=== PATIENT | male | born 1955 | race Caucasian/White ===

== ENCOUNTER 2021-07-31 13:40 | Emergency (ER) | payer MEDICARE ==
[~2021-07-31] VITALS: Wt 99.8 kg
[2021-07-31 14:28] LABS: BASO # 0.03 K/mm3 (0.02-0.10); EOS # 0.34 K/mm3 (0.04-0.40); EOS % 4.3 % (0.0-4.0); HEMATOCRIT 40.4 % (42.0-52.0); HEMOGLOBIN 13.5 g/dL (13.5-18.0); LYMPH# 3.32 K/mm3 (1.50-4.00); MEAN CELL VOLUME 98 fl (78-100); MEAN CORPUSCULAR HEMOGLOBIN 33 pg (27-31); MEAN CORPUSCULAR HGB CONC 33 g/dL (33-37); MEAN PLATELET VOLUME 9.5 fl (7.4-10.4); MONO # 0.73 K/mm3 (0.20-0.80); NEU # 3.46 K/mm3 (1.40-6.50); PLATELET COUNT 180 K/mm3 (130-400); RED BLOOD COUNT 4.13 M/mm3 (4.20-5.60); RED CELL DISTRIBUTION WIDTH 12.1 % (11.5-14.5); WHITE BLOOD COUNT 7.9 K/mm3 (4.8-10.8)
[2021-07-31 14:39] LABS: ALBUMIN 3.4 g/dL (3.4-4.8); POTASSIUM 3.8 mmol/L (3.5-5.1); SODIUM 141 mmol/L (136-145)
[2021-07-31 14:42] LABS: GLUCOSE 120 mg/dL (75-110); TOTAL PROTEIN 6.7 g/dL (6.2-8.1)
[2021-07-31 14:43] LABS: CARBON DIOXIDE 21 mmol/L (23-31); TOTAL BILIRUBIN 0.5 mg/dL (0.2-1.2)
[2021-07-31 14:47] LABS: AST-SGOT 15 U/L (5-34)
[2021-07-31 14:48] LABS: ALT/SGPT 13 U/L (0-55)
[2021-07-31 14:56] LABS: TROPONIN-I < 0.03 ng/mL (<0.030)
[2021-07-31] MEDS ORDERED: METOPROLOL SUCC25 M1 PO (15:00)
[2021-07-31] MEDS ORDERED: LEVOTHYROXINE125 MCG PO (15:00)
[2021-07-31] MEDS ORDERED: LOSARTAN POTASS25 MG PO (15:00)
[2021-07-31 16:40] LABS: URINE APPEARANCE CLEAR; URINE BILIRUBIN 1+ (NEGATIVE); URINE BLOOD NEGATIVE (NEGATIVE); URINE COLOR YELLOW; URINE GLUCOSE NEGATIVE (NEGATIVE); URINE KETONE NEGATIVE (NEGATIVE); URINE LEUKOCYTE ESTERASE TRACE (NEGATIVE); URINE NITRATE NEGATIVE (NEGATIVE); URINE PROTEIN(semi-quant) TRACE mg/dL (NEGATIVE); URINE UROBILINOGEN NORMAL (NORMAL)
[2021-07-31 16:41] LABS: URINE MUCUS PRESENT (NOT PRESENT)
[2021-07-31 17:32] VITALS: BP 126/70
== END 2021-07-31 17:38 | disposition home or self-care (01) ==
LOC: ED 13:40
PROVIDERS: Family Medicine
DX: I10 Essential (primary) hypertension (principal); R55 Syncope and collapse; E03.9 Hypothyroidism, unspecified; Z79.890 Hormone replacement therapy; Z79.899 Other long term (current) drug therapy
CPT/HCPCS: J7030